=== PATIENT | female | born 1995 | race Caucasian/White ===

== ENCOUNTER → 2019-10-10 | Outpatient (CLI) | payer BC ==
[2019-10-10 10:25] LABS: EOS # 0.1 (0.04-0.40); EOS % 2.4 % (1.0-5.0); HEMATOCRIT 39.7 % (37.0-47.0); HEMOGLOBIN 13.2 g/dL (12.5-16.0); LYMPH# 1.7 (1.50-4.00); MEAN CELL VOLUME 96 fl (78-100); MEAN CORPUSCULAR HEMOGLOBIN 32 pg (27-31); MEAN CORPUSCULAR HGB CONC 33 g/dL (33-37); MEAN PLATELET VOLUME 10.1 fl (7.4-10.4); MONO # 0.2 (0.20-0.80); NEU # 3.4 (1.40-6.50); PLATELET COUNT 246 K/mm3 (130-400); RED BLOOD COUNT 4.13 M/mm3 (4.10-5.30); WHITE BLOOD COUNT 5.5 K/mm3 (4.8-10.8)
[2019-10-10 10:39] LABS: POTASSIUM 4.4 mmol/L (3.5-5.1)
[2019-10-10 10:40] LABS: CALCIUM 9.4 mg/dL (8.3-10.5)
[2019-10-10 11:39] LABS: ERYTHROCYTE SEDIMENTATION RATE 11 mm/hr (0-20)
[2019-10-10 11:48] LABS: PARTIAL THROMBOPLASTIN TIME 20.4 SECONDS (21.0-32.0); PROTHROMBIN TIME 9.4 SECONDS (9.0-12.0)
[2019-10-10 23:33] LABS: CALCIUM, IONIZED, SERUM 1.29 mmol/L (1.19-1.41)
[2019-10-11 07:34] LABS: FACTOR V LEIDEN MUTATION B Negative (Negative)
[2019-10-13 12:10] LABS: LUPUS ANTICOAGULANT PTT 29.8 Seconds (())
[2019-10-13 12:39] LABS: LUPUS ANTICOAGULANT DRVVT 1.08 ratio (()); LUPUS ANTICOAGULANT INTERP 31.4 Seconds (())
[2019-10-14 10:13] LABS: ANTI-THROMBIN III 137 % (72-128)
[2019-10-14 17:34] LABS: APCRV RATIO 3.4 (>or=2.3)
[2019-10-22 03:04] LABS: PROTEIN S ANTIGEN FREE AMS
== END ==
LOC: LAB 09:26
PROVIDERS: Internal Medicine Interventional Cardiology
DX: I74.9 Embolism and thrombosis of unspecified artery (principal); E55.9 Vitamin D deficiency, unspecified; Z20.828 Contact with and (suspected) exposure to other viral communicable diseases

== ENCOUNTER → 2019-10-24 | Outpatient (CLI) | payer BC ==
[2019-10-24 09:23] LABS: EOS # 0.2 (0.04-0.40); HEMATOCRIT 37.9 % (37.0-47.0); HEMOGLOBIN 12.4 g/dL (12.5-16.0); LYMPH# 2.1 (1.50-4.00); MEAN CELL VOLUME 97 fl (78-100); MEAN CORPUSCULAR HEMOGLOBIN 32 pg (27-31); MEAN CORPUSCULAR HGB CONC 33 g/dL (33-37); MEAN PLATELET VOLUME 9.4 fl (7.4-10.4); MONO # 0.3 (0.20-0.80); NEU # 6.3 (1.40-6.50); PLATELET COUNT 251 K/mm3 (130-400); RED BLOOD COUNT 3.92 M/mm3 (4.10-5.30); RED CELL DISTRIBUTION WIDTH 12.1 % (11.5-14.5)
[2019-10-24 09:33] LABS: POTASSIUM 4.1 mmol/L (3.5-5.1)
[2019-10-24 09:34] LABS: CALCIUM 9.7 mg/dL (8.3-10.5)
== END ==
LOC: LAB 09:08
PROVIDERS: Internal Medicine Interventional Cardiology
DX: M79.605 Pain in left leg (principal)